=== PATIENT | female | born 1980 ===

== ENCOUNTER → 2020-01-11 | Outpatient (CLI) | payer OTHER ==
--- NOTE | 2020-01-12 10:35 | Diagnostic Imaging Report ---
EXAM: Bilateral breast ultrasound INDICATION: Bilateral breast masses By history, the patient has a palpable mass in the right breast. The diagnostic mammogram performed prior to this study did suggest a rounded roughly 2 cm mass in this area. On this exam, in the region of patient's palpable abnormality, there is a 1.9 x 3.0 cm lobulated well-circumscribed anechoic lesion with through transmission. This does suggest a simple cyst. Most likely this corresponds to the patient's palpable abnormality. The diagnostic mammogram also suggested a small oval density in the midportion of the left breast. On this exam, there is a 1.0 x 2.8 cm bilobed hypoechoic lesion in the left breast at 2 o'clock, 2 cm from the nipple. I suspect that this corresponds to the density seen on the mammogram. This too is most likely a cyst or 2 contiguous cysts. There were no solid lesions to suggest malignancy. IMPRESSION: 1. There is a roughly 3 cm simple cyst in the right breast in the region of the patient's palpable abnormality. There is also a bilobed smaller cyst in the left breast. This cyst also has a generally benign appearance. Clinical follow-up is recommended. 2. There is no solid mass to suggest malignancy. ACR category 2 ACR BI-RADS Category 2: Benign findings. Result letter will be mailed to the patient. Note: At least 10% of breast cancer is not imaged by mammography. Dictated on workstation # [id number]
--- NOTE | 2020-01-12 10:56 | Diagnostic Imaging Report ---
EXAM: Digital mammogram bilateral diagnostic INDICATION: Right breast lump. COMPARISON: This is the patient's baseline study. At this time, she does complain of a palpable abnormality in the upper outer aspect of the right breast. A marker was placed over the area of concern. In this region, there is the suggestion of a roughly 2 cm nodular density. The fibroglandular tissue in the right breast is extremely dense and this does limit the sensitivity of this exam. I would recommend that ultrasound be performed for further study. There is also the suggestion of a small 1 cm oval density deep in the midportion of the left breast. I would recommend that the left breast be examined by ultrasound, as well. IMPRESSION: 1. There appears to be a mass in the area of the patient's popliteal right in the right breast. There may also be another smaller mass in the left breast. Ultrasound would be recommended for further study. ACR category 0 ACR BI-RADS Category 0: Incomplete. (Needs additional imaging evaluation). Result letter will be mailed to the patient. Note: At least 10% of breast cancer is not imaged by mammography. Dictated on workstation # [id number]
== END ==
LOC: RAD 13:34
PROVIDERS: ATTEND Nurse Practitioner Family
DX: N60.01 Solitary cyst of right breast (principal); N60.02 Solitary cyst of left breast
CPT/HCPCS: 76642; 77066

== ENCOUNTER → 2020-02-01 | Outpatient (CLI) | payer OTHER ==
--- NOTE | 2020-02-01 12:34 | Diagnostic Imaging Report ---
PROCEDURE: US Non-ob pelvis comp/trans. TECHNIQUE: Multiple realtime grayscale images were obtained of the pelvis in various projections endovaginally. Transabdominal imaging was also performed. INDICATION: Abnormal uterine bleeding and pelvic pain. FINDINGS: The uterus measures 8.1 x 4.4 x 5.2 cm. The endometrium is 4 mm in thickness. No myometrial mass is detected. Right ovary measures 3.3 x 1.7 x 2.2 cm and the left ovary measures 2.4 x 1.6 x 1.7 cm. There is blood flow to both ovaries. No adnexal mass or free fluid is seen. IMPRESSION: Unremarkable pelvic ultrasound. Dictated by: Dictated on workstation # [id number]
== END ==
LOC: RAD 11:00
PROVIDERS: ATTEND Obstetrics & Gynecology
DX: N93.9 Abnormal uterine and vaginal bleeding, unspecified (principal)
CPT/HCPCS: 76830; 76856

== ENCOUNTER → 2020-08-29 | Outpatient (CLI) | payer OTHER ==
--- NOTE | 2020-08-29 10:58 | Diagnostic Imaging Report ---
PROCEDURE: US Gallbladder. TECHNIQUE: Multiple real-time grayscale images were obtained over the right upper quadrant in various projections. INDICATION: Right upper quadrant pain FINDINGS: The gallbladder appeared normal. No stone or sludge. Wall thickness normal. No para cholecystic edema. The Sinclair sign negative. The liver appeared normal. The portal vein showed a normal hepatopetal directional flow. There was no intra or extrahepatic biliary dilatation. The right kidney is unobstructed measuring 10.5 cm and contains a 1.6 cm simple unilocular benign Bosniak 1 cyst off its upper pole and no echogenic or shadowing stone. No hydronephrosis. The visualized portions of the pancreas unremarkable. IMPRESSION: No hepatobiliary abnormality. Simple benign right renal cortical cyst. Dictated by: Dictated on workstation # [id number]
== END ==
LOC: RAD 08:00
PROVIDERS: ATTEND Nurse Practitioner Family
DX: N28.1 Cyst of kidney, acquired (principal)
CPT/HCPCS: 76705

== ENCOUNTER 2020-10-10 05:40 | Outpatient (RCR) | payer OTHER ==
[~2020-10-10] VITALS: Ht 157.5 cm; Wt 97.3 kg
[~2020-10-10 05:40] MED LIST: CETI10TA17 PO; MULT-141 PO
== END 2020-10-10 14:44 | disposition home or self-care (01) ==
LOC: PREOP 05:40
PROVIDERS: ATTEND Obstetrics & Gynecology
DX: Z01.812 Encounter for preprocedural laboratory examination (principal); D06.9 Carcinoma in situ of cervix, unspecified; Z20.828 Contact with and (suspected) exposure to other viral communicable diseases
CPT/HCPCS: 87635

== ENCOUNTER 2020-10-14 09:32 | Day surgery (SDC) | payer OTHER ==
[~2020-10-14] VITALS: Ht 157.5 cm; Wt 97.3 kg
[2020-10-14] VITALS (12 sets, daily range): BP systolic 81–120; BP diastolic 47–76
[2020-10-14] MEDS ORDERED: D5 LR IV SOLUTION 1,000 ML IV SCH (10:29)
--- NOTE | 2020-10-14 10:29 | Progress Note-Pre Operative ---
Pre-Operative Progress Note H&P Reviewed The H&P was reviewed, patient examined and no changes noted. Date Seen by Provider: Oct 14, 2020 Time Seen by Provider: 10:20 Date H&P Reviewed: Oct 14, 2020 Time H&P Reviewed: 10:20 Pre-Operative Diagnosis: AIS of cervix GORAN MIR DO Oct 14, 2020 10:29
[2020-10-14] MEDS ORDERED: IBUP-1773 PO (10:30)
[2020-10-14] MEDS ORDERED: HYDR-4226 PO (10:30)
[2020-10-14] MEDS ORDERED: ONDANSETRON 4 MG/2 ML (SDV) Z0FRAN IVP PRN ×2 (10:30→12:15)
[2020-10-14] MEDS ORDERED: HYDROcodone/APAP 5 MG/325 MG (LORTAB) TAB PO PRN (10:30)
[2020-10-14] MEDS ORDERED: KETOROLAC 30 MG/ML VIAL IVP ONE (10:30)
--- NOTE | 2020-10-14 10:31 | Discharge Inst-Women's Service ---
Discharge Inst-Women's Serv Depart Medication/Instructions New, Converted or Re-Newed RX: RX on Chart Problems Reviewed?: Yes Consults/Follow Up Additional Follow Up: Yes Orders/Referrals Dr. Mir in 7-10 days Activity Activity: Activity as Tolerated Driving Instructions: No Driving for 1 Week NO SMOKING: NO SMOKING Nothing Inside Vagina: No Douching, No [employer], No Tampons Diet Discharge Diet: No Restrictions Symptoms to Report to : Bleeding Excessive, Pain Increased, Fever Over 101 Degrees F, Vaginal Bleeding Increase, Questions/Concerns For Any Problems or Questions: Contact Your Physician GORAN MIR DO Oct 14, 2020 10:31
[2020-10-14] MEDS ORDERED: MIDAZOLAM 2 MG/2 ML (VERSED) VIAL ONE (10:39)
[2020-10-14] MEDS ORDERED: SEVOFLURANE (ULTANE) 15 ML INHAL SOLN ONE ×7 (10:39→11:37)
[2020-10-14] MEDS ORDERED: ONDANSETRON 4 MG/2 ML (SDV) Z0FRAN ONE ×2 (10:39→11:25)
[2020-10-14] MEDS ORDERED: fentaNYL INJECTION 100 MCG/2 ML AMP ONE (10:39)
[2020-10-14] MEDS ORDERED: proPOfol 200 MG/20 ML (DIPRIVAN) VIAL IV ONE ×2 (10:39→11:25)
[2020-10-14] MEDS ORDERED: LIDOCAINE PF 2% 5 ML (XYLOCAINE) VIAL ONE ×2 (10:39→11:25)
[2020-10-14] MEDS ORDERED: BUPIVACAINE 0.25% 30 ML (SENSORCAINE) VIAL ONE (10:43)
[2020-10-14] MEDS: LACTATED RINGERS 1,000 ML IV PRN ×2 (10:43→12:17)
[2020-10-14 10:53] LABS: BASOPHILS % (AUTO) 0 % (0-10); EOSINOPHILS # (AUTO) 0.1 10^3/uL (0.0-0.3); EOSINOPHILS % (AUTO) 2 % (0-10); HEMATOCRIT 41 % (35-52); HEMOGLOBIN 13.8 g/dL (11.5-16.0); LYMPHOCYTES # (AUTO) 1.6 10^3/uL (1.0-4.0); LYMPHOCYTES % (AUTO) 23 % (12-44); MEAN CORPUSCULAR HEMOGLOBIN 31 pg (25-34); MEAN CORPUSCULAR HGB CONC 34 g/dL (32-36); MEAN CORPUSCULAR VOLUME 91 fL (80-99); MONOCYTES # (AUTO) 0.4 10^3/uL (0.0-1.0); MONOCYTES % (AUTO) 6 % (0-12); NEUTROPHILS # (AUTO) 4.7 10^3/uL (1.8-7.8); NEUTROPHILS % (AUTO) 69 % (42-75); PLATELET COUNT 269 10^3/uL (130-400); WHITE BLOOD COUNT 6.8 10^3/uL (4.3-11.0)
[2020-10-14] MEDS ORDERED: KETOROLAC 30 MG/ML VIAL ONE ×2 (11:26→11:36)
[2020-10-14] MEDS ORDERED: VASOPRESSIN INJECTION 20 UNIT/ML VIAL ONE ×2 (11:35→11:36)
[2020-10-14] MEDS ORDERED: MEPERIDINE (DEMEROL) INJ 50 MG/ML IVP ONE (12:15)
[2020-10-14] MEDS ORDERED: morphine INJ 10 MG/ML 1ML (SYR OR VIAL) IVP ONE (12:15)
--- NOTE | 2020-10-14 13:05 | NUR ---
TO AMB SURG FROM PAR PER CART. ALERT, REPORTS INTERMITTENT CRAMPY PELVIC PAIN, 2/NUMERIC SCALE. V-PAD IN PLACE WITH VERY SCANT AMOUNT OF BLOODY DRAINAGE ON PAD. PO FLUIDS PROVIDED.
--- NOTE | 2020-10-14 13:40 | Anesthesia-General Post-Op ---
General Patient Condition Mental Status/LOC: Same as Preop Cardiovascular: Satisfactory Nausea/Vomiting: Absent Respiratory: Satisfactory Pain: Controlled Complications: Absent Post Op Complications Complications None Follow Up Care/Instructions Patient Instructions None needed. Anesthesia/Patient Condition Patient Condition Patient is doing well, no complaints, stable vital signs, no apparent adverse anesthesia problems. No complications reported per nursing. JAMILAH BALDERRAMA CRNA Oct 14, 2020 13:40
--- NOTE | 2020-10-14 13:45 | NUR ---
TAKING PO FLUIDS WITHOUT PROBLEM AND HAS HAD CRACKERS AND CHEESE. NO CHANGE IN BLEEDING OR PAIN ASSESSMENTS. PAIN MEDICATION OFFERED, REFUSED.
--- NOTE | 2020-10-14 14:35 | NUR ---
NO CHANGE IN ASSESSMENTS. ALERT, STATES SHE IS READY FOR DISMISSAL.
--- NOTE | 2020-10-14 19:20 | OPERATIVE REPORT ---
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 PROCEDURE: D and C with cold knife conization. SURGEON: Goran Mir DO ANESTHESIA: General LMA. ESTIMATED BLOOD LOSS: Minimal. URINE OUTPUT: 200 mL clear at the start of the procedure. FLUIDS: 600 mL lactated Ringer's solution. FINDINGS: A grossly normal appearing external female genitalia and vaginal mucosa and cervix. SPECIMEN SENT: Endometrial curettings and conization biopsy of the cervix. INDICATIONS FOR PROCEDURE: This 32-year-old female patient was counseled in my office for colposcopy. On colposcopy evaluation, no biopsy was warranted; however, her endocervical curettage revealed adenocarcinoma in situ at which point I had the patient come back in and to discuss indications for proceeding with cold knife conization and the possibility of invasive carcinoma, possibility of endometrial versus cervical carcinoma. I discussed with the patient indications for both the D and C and cold knife conization. After all of her questions were answered, consent was obtained in the preoperative area, the patient was taken to the operating room. OPERATIVE REPORT IN DETAIL: Once in the operating room, anesthesia was found to be adequate. She was placed in dorsal lithotomy position, prepped and draped in normal sterile fashion. A timeout was performed. A weighted speculum was inserted in the patient's vagina. Right angle retractor was used to visualize the cervix, which was grasped at 12 o'clock position using a long single tooth tenaculum. Prior to placing the tenaculum, I also drain the bladder using straight catheterization. I then performed paracervical block at 3 and 9 o'clock positions on the cervix. Care was taken to aspirate before injecting, 0.25% Marcaine is injected into each site and 5 mL was injected. Once this was done, I then gently sound the uterine cavity, depth was found to be 8 cm, then gently dilated the cervix using Hegar dilators to allow a gentle curettage to be performed. Once this was performed, endometrial curettings were collected and sent as endometrial curettings. I then placed 2-0 Vicryl sutures at 3 and 9 o'clock positions on the cervix ligating the descending branches of the uterine artery into the cervical blood supply. I also injected the stroma of the cervix using vasopressin, a concentration of 20 units in 100 mL normal saline. I then performed a conization biopsy with a knife and taking it to its more proximal insertion point with Pelayo scissors after the biopsy was taken and is sent as cervical conization biopsy. The stromal bed of the cervix was then cauterized using ball cautery. I then placed four Sturmdorf stitches in all 4 quadrants of the biopsy using 2-0 Vicryl suture, after which bleeding was noted to be minimal to scant. I also covered the incision and surgical planes with estrogen after which all instruments were removed from the patient's vagina. The patient tolerated the procedure well and sent to recovery in stable condition. Lap and sponge counts were correct at the end of the procedure. Instrument counts correct as well. Job ID: [id number] DocumentID: [id number] Dictated Date: 10/14/2020 12:48:58 Chain Splitter Date: 10/14/2020 19:20:16 Dictated By: GORAN MIR DO
== END 2020-10-14 14:35 | disposition home or self-care (01) ==
LOC: SDC 09:32
PROVIDERS: ATTEND Obstetrics & Gynecology
DX: D06.0 Carcinoma in situ of endocervix (principal); N84.0 Polyp of corpus uteri; Z88.2 Allergy status to sulfonamides
CPT/HCPCS: 36415; 84703; 85025; 86850; 86900; 86901; 87081; 88305; 88307

== ENCOUNTER 2020-11-14 05:34 | Outpatient (RCR) | payer OTHER ==
[~2020-11-14] VITALS: Ht 160 cm; Wt 63.6 kg
[~2020-11-14 05:34] MED LIST changes: +HYDR-4226 PO; +IBUP-1773 PO
== END 2020-11-14 09:16 | disposition home or self-care (01) ==
LOC: PREOP 05:34
PROVIDERS: ATTEND Obstetrics & Gynecology
DX: Z01.812 Encounter for preprocedural laboratory examination (principal); Z20.828 Contact with and (suspected) exposure to other viral communicable diseases; D06.9 Carcinoma in situ of cervix, unspecified
CPT/HCPCS: 87635

== ENCOUNTER 2020-11-18 09:41 | Day surgery (SDC) | payer OTHER ==
[~2020-11-18] VITALS: Ht 160 cm; Wt 63.6 kg
[2020-11-18] VITALS (10 sets, daily range): BP systolic 94–119; BP diastolic 55–82
[2020-11-18] MEDS ORDERED: metroNIDAZOLE 500MG/100ML IVPB 100 ML IV ONE (10:00)
[2020-11-18] MEDS ORDERED: ceFAZolin INJECTION 1,000 MG in WATER (STERILE) FOR INJECTION 10 ML IV ONE (10:00)
[2020-11-18] MEDS ORDERED: CATHETER FLUSH 10 ML SYR IV PRN (10:00)
[2020-11-18 10:44] LABS: BASOPHILS % (AUTO) 0 % (0-10); EOSINOPHILS # (AUTO) 0.1 10^3/uL (0.0-0.3); EOSINOPHILS % (AUTO) 1 % (0-10); HEMATOCRIT 40 % (35-52); HEMOGLOBIN 13.4 g/dL (11.5-16.0); LYMPHOCYTES % (AUTO) 20 % (12-44); MEAN CORPUSCULAR HEMOGLOBIN 31 pg (25-34); MEAN CORPUSCULAR HGB CONC 33 g/dL (32-36); MEAN CORPUSCULAR VOLUME 92 fL (80-99); MONOCYTES # (AUTO) 0.3 10^3/uL (0.0-1.0); MONOCYTES % (AUTO) 7 % (0-12); NEUTROPHILS # (AUTO) 3.5 10^3/uL (1.8-7.8); NEUTROPHILS % (AUTO) 72 % (42-75); PLATELET COUNT 269 10^3/uL (130-400); WHITE BLOOD COUNT 4.8 10^3/uL (4.3-11.0)
[2020-11-18] MEDS: LACTATED RINGERS 1,000 ML IV PRN ×3 (10:53→15:01)
[2020-11-18] MEDS ORDERED: LIDOCAINE/EPI 1%-1:200,000 (XYLOCAINE) 30 ML VIAL ONE (11:53)
[2020-11-18] MEDS ORDERED: proPOfol 200 MG/20 ML (DIPRIVAN) VIAL IV ONE (13:06)
[2020-11-18] MEDS ORDERED: LIDOCAINE PF 2% 5 ML (XYLOCAINE) VIAL ONE (13:06)
[2020-11-18] MEDS ORDERED: MIDAZOLAM 2 MG/2 ML (VERSED) VIAL ONE (13:07)
[2020-11-18] MEDS ORDERED: fentaNYL INJECTION 100 MCG/2 ML AMP ONE (13:07)
--- NOTE | 2020-11-18 13:25 | Progress Note-Pre Operative ---
Pre-Operative Progress Note H&P Reviewed The H&P was reviewed, patient examined and no changes noted. Date Seen by Provider: Nov 18, 2020 Time Seen by Provider: 13:00 Date H&P Reviewed: Nov 18, 2020 Time H&P Reviewed: 13:00 Pre-Operative Diagnosis: AIS of Cervix GORAN MIR DO Nov 18, 2020 13:25
--- NOTE | 2020-11-18 13:28 | Discharge Inst-Women's Service ---
Discharge Inst-Women's Serv Depart Medication/Instructions New, Converted or Re-Newed RX: RX on Chart Final Diagnosis PO RATLH w/Tubes AIS of cervix Problems Reviewed?: Yes Consults/Follow Up Additional Follow Up: Yes Orders/Referrals Dr. Green in 7-10 days and in 8 weeks. Activity Activity: Activity as Tolerated Driving Instructions: No Driving for 1 Week NO SMOKING: NO SMOKING Nothing Inside Vagina: No Douching, No [place], No Tampons Diet Discharge Diet: No Restrictions Symptoms to Report to : Bleeding Excessive, Pain Increased, Fever Over 101 Degrees F, Vaginal Bleeding Increase, Questions/Concerns For Any Problems or Questions: Contact Your Physician Skin/Wound Care Infection Signs and Symptoms: Increased Redness, Foul Odor of Wound, Increased Drainage, Skin Itchy or Has a Rash, Increased Swelling, Temperature Above 101 F Operative Area Clean and Dry: Keep Incision Clean/Dry Stitches/Deondre/Dermabond: Dermabond, Care of Stitches Bathing Instructions: GORAN Kowalski DO Nov 18, 2020 13:28
[2020-11-18] MEDS ORDERED: ONDANSETRON 4 MG/2 ML (SDV) Z0FRAN IV PRN (13:30)
[2020-11-18] MEDS ORDERED: HYDR-34 PO (13:30)
[2020-11-18] MEDS ORDERED: CHLORASEPTIC LOZENGE MM PRN (13:30)
[2020-11-18] MEDS ORDERED: HYDROcodone/APAP 7.5 MG/325 MG (LORTAB, LORCET PLUS) TABLET PO PRN (13:30)
[2020-11-18] MEDS ORDERED: DCS100C PO (13:30)
[2020-11-18] MEDS ORDERED: ZOLPIDEM 5 MG (AMBIEN) TAB PO PRN (13:30)
[2020-11-18] MEDS ORDERED: ANTACID SUSP 30 ML UDC (MYLANTA) PO PRN (13:30)
[2020-11-18] MEDS ORDERED: IBUP-844 PO (13:30)
[2020-11-18] MEDS ORDERED: SIME80TA16 PO (13:30)
[2020-11-18] MEDS ORDERED: LACTATED RINGERS 1,000 ML IV SCH (13:30)
[2020-11-18] MEDS ORDERED: DOCUSATE SODIUM 100 MG (COLACE) CAP PO PRN (13:30)
[2020-11-18] MEDS ORDERED: SUCCINYLCHOLINE INJ 100 MG/5 ML SYR/VIAL ONE (14:24)
[2020-11-18] MEDS ORDERED: SEVOFLURANE (ULTANE) 15 ML INHAL SOLN ONE ×2 (14:24→14:28)
[2020-11-18] MEDS ORDERED: GLYCOPYRROLATE 0.2 MG/ML (ROBINUL) 2 ML VIAL ONE (14:24)
[2020-11-18] MEDS ORDERED: NEOSTIGMINE 3 MG/3 ML VIAL ONE (14:24)
[2020-11-18] MEDS ORDERED: KETOROLAC 30 MG/ML VIAL ONE (14:31)
[2020-11-18] MEDS: KETOROLAC 30 MG/ML VIAL IV PRN ×2 (14:33→21:36)
[2020-11-18] MEDS ORDERED: ROCURONIUM 10 MG/ML 5 ML SYRINGE IV ONE (14:38)
[2020-11-18] MEDS ORDERED: HYDROmorphone 2 MG/ML VIAL (DILAUDID) ONE (14:51)
[2020-11-18] MEDS ORDERED: morphine INJ 10 MG/ML 1ML (SYR OR VIAL) IVP ONE (15:00)
[2020-11-18] MEDS ORDERED: ONDANSETRON 4 MG/2 ML (SDV) Z0FRAN IVP PRN (15:00)
[2020-11-18] MEDS ORDERED: PROMETHAZINE INJ 25 MG/ML (PHENERGAN) AMP IVP ONE (15:00)
[2020-11-18] MEDS ORDERED: MEPERIDINE (DEMEROL) INJ 50 MG/ML IVP ONE (15:00)
[2020-11-18] MEDS ORDERED: HYDROmorphone 2 MG/ML VIAL (DILAUDID) IV ONE (15:00)
--- NOTE | 2020-11-18 15:40 | NUR ---
ELOY VERA presented to unit via BED from RECOVERY, accompanied by Abimbola FLOYD, RN AND Antonio BACON RN AFTER HAVING SURGERY PER DR. MIR. VS taken. REPORT RECEIVED.
--- NOTE | 2020-11-18 18:50 | NUR ---
PT LYING IN BED, WATCHING TV. LIBRA BONNER'Haylee, 100 ML OF YELLOW URINE NOTED. PT DENIES ANY NEEDS AT THIS TIME. CALL LIGHT WITHIN REACH.
--- NOTE | 2020-11-18 20:15 | NUR ---
up to void without difficulty. Pt states she would like to stay the night and go home in the morning.
[2020-11-18] MEDS: SIMETHICONE 80 MG (MYLICON) CHEW PO PRN (21:35)
[2020-11-19] MEDS: IBUPROFEN 600 MG (MOTRIN) TAB PO SCH ×2 (03:07→08:57)
[2020-11-19 03:11] VITALS: BP 99/54
--- NOTE | 2020-11-19 04:18 | OPERATIVE REPORT ---
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 PROCEDURE: Robotic-assisted total laparoscopic hysterectomy with bilateral salpingectomy. SURGEON: Gordy Mir DO GENERAL WORKER: Maura Owens DNP, was necessary for manipulation and retraction throughout the procedure. ANESTHESIA: General endotracheal. ESTIMATED BLOOD LOSS: Minimal. URINE OUTPUT: 20 mL clear at the end of the procedure. FLUIDS: 2 liters lactated Ringer's solution. FINDINGS: A grossly normal appearing uterus, bilateral fallopian tubes and ovaries. Evidence of recent conization biopsy of the cervix. Otherwise, grossly normal appearing external female genitalia. SPECIMEN SENT: Uterus, cervix, bilateral fallopian tubes. INDICATIONS FOR PROCEDURE: This 40-year-old female is a patient who had just recently undergone a cold knife conization well as D and C due to atypical glandular cells with a followup of a positive ECC suspicious for adenocarcinoma in situ. This was confirmed on the biopsy. We discussed repeat conization due to positive margins. However, the patient wished to proceed with more definitive measures as she has completed with childbearing. Risk of hysterectomy was discussed with the patient in detail including risk of bleeding, infection, damage to surrounding structures including, but not limited to bowel, bladder, ureter, kidneys, possible need for reoperation, postoperative complications that may occur, risk from anesthesia and even were all discussed with the patient. After all of her questions were answered, she was still agreeable, consent was obtained, the patient was taken to the operating room. OPERATIVE REPORT IN DETAIL: Once in the operating room, general anesthesia was found to be adequate. She was placed in dorsal lithotomy position, prepped and draped in normal sterile fashion. Timeout was performed. A Gutierrez catheter was placed using sterile technique. Weighted speculum was inserted to the patient's vagina. Right angle retractor was used to visualize the cervix. It was grasped at 12 o'clock position using a long Allis clamp. I then placed an 0 Vicryl suture through the anterior lip of the cervix and removed the Allis clamp and used the suture as my retraction point. I then gently sound the uterine cavity, depth was found to be 8 cm. I selected an 8 cm Nina uterine manipulator tip and a 3.5 cm colpotomy ring. The manipulator tip was advanced into the uterus where the balloon was deployed and the colpotomy ring advanced around the vaginal fornix, which offers excellent manipulation on bimanual exam. I then removed all the other instruments from the patient's vagina, performed change of gloves obtained my attention to the abdomen where infraumbilically I infiltrated this area using 0.25% Marcaine and make an 8 mm incision with a knife and directed Veress needle through this incision, intraperitoneal placement was confirmed using saline drop test. Opening pressure of 3 mmHg was noted, proceeded to max pressure of 15 mmHg, at which point I removed the Veress needle and introduced an 8 mm laparoscopic da Amna camera trocar. Once this was in place, I am able to confirm intraperitoneal placement using the da Amna laparoscope. There was no evidence of damage upon my entry site. I then had the patient placed in steep Trendelenburg where I am able to visualize all my pelvic anatomy as described in my findings above. I placed two lateral trocars using both 8 mm trocars approximately 8 cm lateral to my infraumbilical trocar. Once these trocars were in place, I brought in the da Amna robot and docked in appropriate fashion placing the vessel sealer in the left hand and monopolar juan carlos in the right hand. I performed the following dissection bilaterally. I started the uteroovarian ligament, I bipolar cauterized and transected using vessel sealer. I then created a window in the mesosalpinx and took this dissection all the way down the mesosalpinx amputating the fallopian tube from its surrounding blood supply. I then grasped the entire round ligament, which I bipolar cauterized and transected using vessel sealer. I was then able to grasp the entire broad ligament, which I bipolar cauterized and transected using vessel sealer. I do this down to the level of the lower uterine segment, at which point I the anterior and posterior leaflets of the broad ligament. The anterior leaflet was taken around to the anterior vaginal fornix, posterior leaflet was taken around to the posterior vaginal fornix. This allows me to skeletonize the uterine vessels laterally, which I then bipolar cauterized and transected using vessel sealer. I then created a colpotomy at 12 o'clock position and took this circumferentially around the vaginal fornix using the monopolar juan carlos amputating the cervix away from the vagina. The entire specimen was then removed through the vagina. I closed the lateral vaginal apices of the vaginal cuff using 2-0 Vicryl suture in a [id number] fashion colposuspending the uterosacral ligaments. I then closed the remainder of the vaginal cuff using 2-0 V-Loc in a running fashion, after which no active bleeding noted from any of my dissection planes. I then undocked the da Amna robot, proceeded with remainder of the case laparoscopically. I copiously irrigated the pelvis using normal saline. Once again, no active bleeding was noted from any of my dissection planes. I placed Surgiflo hemostatic agent over all my planes of dissection and excellent hemostasis was noted after doing this. I then had the patient taken out of steep Trendelenburg where I removed the lateral trocars under direct visualization of the laparoscope. The infraumbilical trocar was left in place to release the remainder of the insufflation and to introduce 10 mL of 0.25% Marcaine into the peritoneal cavity for postoperative pain management. I then removed this trocar as well. The skin was then reapproximated using 4-0 Monocryl in interrupted subcuticular stitches. Dermabond was applied to incision and sterile dressings with adhesive white tape and a sterile bandage were placed over the incisions as well. Gutierrez catheter was left in place. The patient tolerated the procedure well and sent to recovery area in stable condition. Lap and sponge counts were correct at the end of the procedure. Instrument counts correct as well. One gram of Ancef, 500 mg of Flagyl were given preoperatively for infection prophylaxis. Job ID: [id number] DocumentID: [id number] Dictated Date: 11/18/2020 15:34:40 [employer] Date: 11/19/2020 04:18:16 Dictated By: GORDY MIR DO
[2020-11-19 07:47] VITALS: BP 107/64
[2020-11-19] MEDS: SIMETHICONE 80 MG (MYLICON) CHEW PO PRN (07:51)
--- NOTE | 2020-11-19 07:52 | NUR ---
DR. MIR AT PT'S BEDSIDE. OK'D 80 MG OF SIMETHICONE; SEE EMAR FOR FURTHER.
--- NOTE | 2020-11-19 09:05 | NUR ---
DISCHARGE PAPERS PROVIDED AND REVIEWED WITH PT, PT VERBALIZES UNDERSTANDING. QUESTIONS ANSWERED. PAPER SIGNED. FOLLOW UP APPOINTMENT CARDS AND PRESCRIPTIONS ALSO PROVIDED AT THIS TIME AND PLACED INTO DISCHARGE FOLDER.
--- NOTE | 2020-11-19 09:25 | NUR ---
PT DISCHARGED FROM -[facility] TO PERSONAL AUTO VIA W/C IN STABLE CONDITION ACC BY THIS RN.
--- NOTE | 2020-11-19 14:40 | Anesthesia-General Post-Op ---
General Patient Condition Mental Status/LOC: Same as Preop Cardiovascular: Satisfactory Nausea/Vomiting: Absent Respiratory: Satisfactory Pain: Controlled Complications: Absent Post Op Complications Complications None Follow Up Care/Instructions Patient Instructions None needed. Anesthesia/Patient Condition Patient Condition Patient is already discharged to home but she was doing well prior to her discharge to home per nursing staff; no complaints, stable vital signs, no apparent adverse anesthesia problems. LEO MATHEW DO Nov 19, 2020 14:40
== END 2020-11-19 09:25 | disposition home or self-care (01) ==
LOC: SDC 09:41 → WS 15:40 → SDC 11-19 09:25
PROVIDERS: ATTEND Obstetrics & Gynecology
DX: D25.1 Intramural leiomyoma of uterus (principal); D06.9 Carcinoma in situ of cervix, unspecified; Z88.2 Allergy status to sulfonamides; Z87.891 Personal history of nicotine dependence
CPT/HCPCS: 36415; 84703; 85025; 86850; 86900; 86901; 87081; 88307

== ENCOUNTER → 2021-06-12 | Outpatient (CLI) | payer OTHER ==
[~2021-06-12] MED LIST changes: +DCS100C PO; +HYDR-34 PO; +IBUP-844 PO; +SIME80TA16 PO
--- NOTE | 2021-06-12 14:05 | Diagnostic Imaging Report ---
Indication: 2-D and 3-D digital screening with CAD Compared with study 01/11/2020. FINDINGS: Heterogeneously dense parenchymal pattern persists which can limit mammographic sensitivity. A projecting medial to the nipple line in the cc view and posteriorly positioned seen best in the upper tomographic slices is an asymmetric ovoid 1 cm density without convincing correlate in the MLO views. Its unclear if this is owing to new mass or superimposition. Spot compression diagnostic views as well as medial and lateral rolled CC views recommended and a 90 degree mediolateral view. Should the density fail to confidently resolve with diagnostic views targeted ultrasound at that time may be of benefit. Breast were otherwise nonfocal. There were a few benign calcifications stable. IMPRESSION: Limited by dense parenchyma, asymmetric density posterior medial right breast seen best in the tomographic CC views. Diagnostic views and possible ultrasound recommended as discussed. BI-RADS Category 0 ACR BI-RADS Category 0: Incomplete. (Needs additional imaging evaluation). Result letter will be mailed to the patient. Note: At least 10% of breast cancer is not imaged by mammography. Dictated by: Dictated on workstation # [id number]
== END ==
LOC: RAD 07:47
PROVIDERS: ATTEND Nurse Practitioner Family
DX: Z12.31 Encounter for screening mammogram for malignant neoplasm of breast (principal)
CPT/HCPCS: 77063; 77067

== ENCOUNTER → 2021-06-19 | Outpatient (CLI) | payer OTHER ==
--- NOTE | 2021-06-19 14:47 | Diagnostic Imaging Report ---
Indication: Right breast density. Patient presents for additional views. Correlation is made with screening study from 06/12/2021. Unilateral right 2-D and 3-D diagnostic mammography was performed. This includes spot compression CC, rolled CC as well as 90 degree lateral views. There is a persistent ovoid nodular density in the upper and inner aspect of the right breast approximately 9 cm from the nipple. No suspicious microcalcifications are seen. IMPRESSION: BI-RADS 0 Persistent nodular density upper inner right breast posterior depth. Further evaluation with ultrasound is recommended and will be performed today. ACR BI-RADS Category 0: Incomplete. (Needs additional imaging evaluation). Result letter will be mailed to the patient. Note: At least 10% of breast cancer is not imaged by mammography. Dictated by: Dictated on workstation # [id number]
--- NOTE | 2021-06-19 18:44 | Diagnostic Imaging Report ---
INDICATION: Right breast density. COMPARISON: Correlation is made with diagnostic mammogram from earlier the same day. EXAMINATION: Sonography interrogation of the upper and inner aspect of the right breast was performed. FINDINGS: There are several small cysts present at the 1:00 and 2:00 locations. A cyst at the 1:00 location posterior depth measures 7 mm x 5 mm x 6 mm, likely accounting for the mammographic density. There are also two cysts at the 2:00 location measuring 4-5 mm in size. No solid mass is detected. IMPRESSION: Simple cyst upper inner right breast likely accounting for the mammographic density. Patient may return to routine annual screening mammography. ACR BI-RADS Category 2: Benign findings. Result letter will be mailed to the patient. Note: At least 10% of breast cancer is not imaged by mammography. Dictated by: Dictated on workstation # [id number]
== END ==
LOC: RAD 14:15
PROVIDERS: ATTEND Nurse Practitioner Family
DX: N60.01 Solitary cyst of right breast (principal)
CPT/HCPCS: 76642; 77065; G0279

== ENCOUNTER → 2022-05-11 | Outpatient (CLI) | payer OTHER ==
[~2022-05-11] MED LIST changes: -DCS100C PO; +DOCU-239 PO
--- NOTE | 2022-05-11 10:27 | Diagnostic Imaging Report ---
INDICATION: Pharyngitis. There is an enlarged lymph node in the right neck measuring 2.1 x 2.4 x 0.7 cm. Normal sized lymph nodes left neck are noted. No fluid collections are seen. IMPRESSION: Enlarged right neck lymph node, perhaps reactive. Dictated by: Dictated on workstation # [id number]
== END ==
LOC: RAD 09:03
PROVIDERS: ATTEND Otolaryngology Otolaryngology/Facial Plastic Surgery
DX: J31.2 Chronic pharyngitis (principal); J35.8 Other chronic diseases of tonsils and adenoids
CPT/HCPCS: 76536

== ENCOUNTER → 2022-08-20 | Outpatient (CLI) | payer OTHER ==
--- NOTE | 2022-08-20 10:47 | Diagnostic Imaging Report ---
INDICATION: Routine screening. Comparison is made with prior mammogram from 06/10/2021 and 01/11/2020. 2-D and 3-D bilateral screening mammography was performed with CAD. Both breasts are heterogeneously dense, limiting the sensitivity of mammography. There are some circumscribed densities in both breasts consistent with cysts. Bilateral benign calcifications are noted. No spiculated mass or malignant-appearing microcalcifications are seen. Axillae are unremarkable. IMPRESSION: No mammographic features suspicious for malignancy are identified. ACR BI-RADS Category 2: Benign findings. Result letter will be mailed to the patient. Note: At least 10% of breast cancer is not imaged by mammography. BI-RADS Category 2 Dictated by: Dictated on workstation # [id number]
== END ==
LOC: RAD 07:45
PROVIDERS: ATTEND Nurse Practitioner Family
DX: Z12.31 Encounter for screening mammogram for malignant neoplasm of breast (principal)
CPT/HCPCS: 77063; 77067